=== PATIENT | male | born 2000 | race Caucasian/White ===

== ENCOUNTER 2022-11-08 18:40 | Emergency (ER) | payer OTHER, SELFPAY ==
--- NOTE | ~2022-11-08 | CT_ITS ---
EXAMINATION: CT lumbar spine wo con DATE: 11/08/2022 20:18 INDICATION: Low back pain TECHNIQUE: Computed tomography (CT) of the lumbar spine was performed without intravenous contrast. T he dose-length product (DLP) was 612.52 mGy-cm. Iterative reconstruction was used. COMPARISON: None FINDINGS: No fracture, dislocation, or subluxation. The vertebral body heights, alignment, and interv ertebral disc spaces are normal. The paravertebral soft tissues are unremarkable. IMPRESSION: 1. No acute osseous abnormality. Reviewed, dictated and finalized at location F.
[2022-11-08 19:24] VITALS: BP 155/98; PULSE 78; RESP 18; TEMP 36.9; O2SAT 100
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
[2022-11-08] MEDS: IBUPROFEN 400 MG TABLET 800 MG PO (19:58)
[2022-11-08] MEDS: CYCLOBENZAPRINE HCL 10 MG TABLET PO (19:59)
[2022-11-08 21:18] VITALS: BP 143/86; PULSE 68; RESP 15; O2SAT 100
== END 2022-11-08 21:19 | disposition home or self-care (01) ==
PROVIDERS: Emergency Provider Physician Assistant
DX: S39.012A Strain of muscle, fascia and tendon of lower back, initial encounter (principal); S16.1XXA Strain of muscle, fascia and tendon at neck level, initial encounter; V43.52XA Car driver injured in collision with other type car in traffic accident, initial encounter
CPT/HCPCS: 72131; 99284; A9270

== ENCOUNTER 2023-02-09 08:28 | Emergency (ER) | payer SELFPAY ==
[2023-02-09 08:39] VITALS: BP 138/83; PULSE 66; RESP 16; TEMP 36.8; O2SAT 99
[2023-02-09 08:40] VITALS: BP 138/83; PULSE 66; RESP 16; TEMP 36.8; O2SAT 99
--- NOTE | 2023-02-09 09:02 | ED.EYEPROB ---
HPI - Eye Problem General Chief complaint: Eye Problems Stated complaint: left eye pain Time Seen by Provider: 02/09/23 09:02 Source: patient Mode of arrival: ambulatory Limitations: no limitations History of Present Illness HPI Narrative: 23-year-old male presents with pain to left Upper eyelid starting yesterday. woke up this morning with Stye to left upper eyelid. No vision changes. clear drainage. All systems reviewed and negative except as noted above. Related Data Allergies Allergy/AdvReac Type Severity Reaction Status Date / Time No Known Allergies Allergy Verified 02/09/23 08:40 Review of Systems Review of Systems: CONSTITUTIONAL: Denies fever, chills, or sweats. EYES: Denies visual changes, redness . Reports that Stye to left upper eyelid with clear drainage. ENT: Denies rhinorrhea, congestion, sore throat, or otalgia. CARDIOVASCULAR: Denies chest pain, palpitations, or edema. RESPIRATORY: Denies cough or dyspnea. GASTROINTESTINAL: Denies abdominal pain, nausea, vomiting, or diarrhea. GENITOURINARY: Denies dysuria or hematuria. SKIN: Denies rash or itching. MUSCULOSKELETAL: Denies back pain, joint pain, or myalgia. NEUROLOGIC: Denies headache, numbness, or weakness. PSYCHIATRIC: Denies anxiety or depression. All other systems reviewed are negative, except as documented in HPI. PMFSH Comments At time of signature, agree with nursing past medical, surgical, social and family history. There is no relevant family history pertinent to the presenting complaint. Exam Narrative: GENERAL: This is a well-nourished, well-developed patient, in no apparent distress. HEAD: normocephalic, atraumatic. EYES: PERRL. Sclera clear/white. Vision is grossly intact. erythematous stye to left upper eyelid with white pustule. Tenderness on palpation. EARS: External ears normal NOSE: External nose normal NECK: Neck supple, non-tender without lymphadenopathy, masses or thyromegaly. CARDIOVASCULAR: Regular rate and rhythm without murmurs, gallops, or rubs. RESPIRATORY: Clear to auscultation. Breath sounds equal bilaterally. No wheezes, rales, or rhonchi. SKIN: warm, Dry, intact with no suspicious lesions or rash, good texture and turgor. NEURO: awake, alert, and oriented to person, place and time. There were no obvious focal neurologic abnormalities. EXTREMITIES: No joint tenderness, effusion, or edema noted. Course Course Level of Care: Express Care Visit Vital Signs Vital signs: Vital Signs Temperature 36.8 C 02/09/23 08:39 Pulse Rate 66 02/09/23 08:39 Respiratory Rate 16 02/09/23 08:39 Blood Pressure 138/83 02/09/23 08:39 Pulse Oximetry 99 02/09/23 08:39 Oxygen Delivery Room Air 02/09/23 08:39 Temperature 36.8 C 02/09/23 08:40 Pulse Rate 66 02/09/23 08:40 Respiratory Rate 16 02/09/23 08:40 Blood Pressure 138/83 02/09/23 08:40 Pulse Oximetry 99 02/09/23 08:40 Oxygen Delivery Room Air 02/09/23 08:40 reviewed MDM - Eye Problem MDM Narrative Medical decision making narrative: Patient is aware of diagnosis, understands and agrees to treatment plan. Anticipatory guidance given. Patient agrees to follow-up as directed and is aware of reasons to seek care at the emergency department. Portions of this record may have been created with voice recognition software Discharge Plan Discharge Clinical Impression: Hordeolum externum left upper eyelid Patient Disposition: Home, Self-Care Condition: Stable Instructions: Erythromycin (Into the eye)[facility] (ED) Additional Instructions: Place antibiotic eye ointment as prescribed. Apply a warm compress and gently massage for 10 minutes 4-5 times today. Follow-up with your primary care physician if not improving. Prescriptions: New erythromycin 5 mg/gram (0.5 %) ointment 1 applic LEFT EYE QID 10 Days Qty: 3.5 0RF Follow-up/Referrals: PHYSICIAN,SNIPPER [Primary Care Provider] -
== END 2023-02-09 09:15 | disposition home or self-care (01) ==
PROVIDERS: Emergency Provider Nurse Practitioner Family
DX: H00.014 Hordeolum externum left upper eyelid (principal)
CPT/HCPCS: 99213; G0463